=== PATIENT | male | born 1985 | race Caucasian/White ===

== ENCOUNTER → 2018-12-05 10:21 | Outpatient (CLI) | payer MEDICARE, MEDICAID, SELFPAY ==
[2018-11-26 09:51] VITALS: BMI 34.9
--- NOTE | 2018-12-05 10:24 | ECHOD_ITS ---
Reason For Study: HYPERTENSION Procedure This was a 2D Doppler, Color Flow transthoracic echocardiogram. Exam performed in department. Left Ventricle Normal LV size. Left ventricular systolic function is lower limits of normal. The estimated ejection fraction is 50 %. Stage 1 diastolic dysfunction. No regional wall motion abnormalities noted. Right Ventricle Normal RV size. Normal systolic function. Atria Normal left atrium. Normal right atrium. Mitral Valve Normal mitral valve. Tricuspid Valve Normal tricuspid valve. Unable to estimate RV systolic pressure due to inadequate jet, pulmonary artery pressure probably normal. Aortic Valve Normal aortic valve. Pulmonic Valve Normal pulmonic valve. Great Vessels Normal aortic root. The pulmonary artery is normal size. Normal inferior vena cava. Pericardium/Pleural No pericardial effusion. MMode/2D Measurements & Calculations LVIDd: 3.9 cm IVSd: 1.2 cm Ao root diam: 3.1 cm LVIDs: 2.7 cm LVPWd: 1.3 cm RVDd: 2.8 cm FS: 31.4 % LAV(MOD-bp): 33.5 ml LA A4 area: 13.2 cm2 LA dimension(2D): 3.4 cm LAV(MOD-bp) Indexed: 14.6 ml/m2 LAV(MOD-sp2): 35.7 ml LAV(MOD-sp4): 30.2 ml RA A4 area: 12.1 cm2 Time Measurements MV dec time: 0.20 sec Doppler Measurements & Calculations MV E max ok: 44.1 cm/sec Lat Peak E' Ok: 4.5 cm/sec Med Peak E' Ok: 7.1 cm/sec MV A max ok: 45.4 cm/sec E/E' lat: 9.9 E/E' med: 6.2 MV E/A: 0.97 Ao V2 max: 82.5 cm/sec LV V1 max: 74.3 cm/sec PA V2 max: 77.3 cm/sec Ao max P.7 mmHg LV V1 max P.2 mmHg Interpretation Summary Normal LV size. Left ventricular systolic function is lower limits of normal. The estimated ejection fraction is 50 %. Stage 1 diastolic dysfunction. Ordering Physician: Moises Alvarez Referring Physician: Davidson Proctor Performed By: Nancy Ulrich, ALEXX, RVT
== END ==
PROVIDERS: Family Provider Family Medicine; PCP Family Medicine; Referring Provider Internal Medicine Cardiovascular Disease; Visit Provider Internal Medicine Cardiovascular Disease
DX: R94.31 Abnormal electrocardiogram [ECG] [EKG] (principal)
CPT/HCPCS: 93306

== ENCOUNTER → 2019-05-14 10:18 | Outpatient (CLI) | payer MEDICARE, MEDICAID, SELFPAY ==
[2018-11-26 09:51] VITALS: BMI 34.9
[2019-05-14 10:51] LABS: Hematocrit 42.8 % (40-54); Hemoglobin 14.3 g/dL (13.0-16.5); Mean Corp Hgb Conc 33.4 g/dL (32-36); Mean Corpuscular Hgb 28.4 pg (27.0-32.0); Mean Corpuscular Volume 84.9 fL (80-94); Mean Platelet Vol. 9.6 fl (6.2-12.0); Platelet Count 339 K/mm3 (150-450); RBC Distribution Width CV 13.1 % (11.6-14.6); RBC Distribution Width SD 40.3 fl (35.1-43.9); Red Blood Count 5.04 M/mm3 (4.6-6.2); White Blood Count 5.9 K/mm3 (4.4-11.0)
[2019-05-14 11:26] LABS: Vitamin B12 845 pg/mL (211-911)
[2019-05-14 11:27] LABS: PTHIN 28.4 pg/mL (18.4-80.1)
[2019-05-14 11:35] LABS: AST(SGOT) 17 U/L (15-37); Alanine Aminotransfer ALT/SGPT 34 U/L (16-61); Albumin, Serum 3.5 g/dL (3.2-5.0); Alkaline Phosphatase 107 U/L (45-117); Anion Gap 5 (5-15); BUN 12 mg/dL (7-18); BUN/Creat Ratio 10.3 RATIO (10-20); Calcium,Total 9.2 mg/dL (8.5-10.1); Chloride 111 mmol/L (98-107); Cholesterol 177 mg/dL (200); Creatinine, Serum 1.17 mg/dL (0.70-1.30); EST Glomerular Filtration Rate 77 mL/min (>60); Est Glom Filt Rate - Afr Amer 93 mL/min (>60); Ferritin 163 ng/mL (26-388); Globulin 3.4 g/dL (2.2-4.2); Glucose 89 mg/dL (74-106); High Density Lipoprotein 44 mg/dL; Iron 105 ug/dL (65-175); Iron Binding Capacity,Total 306 ug/dL (250-450); Magnesium 2.1 mg/dL (1.6-2.6); PERCENT IRON SATURATION 34.3 % (15.0-55.0); Potassium 3.8 mmol/L (3.5-5.1); Protein, Total 6.9 g/dL (6.4-8.2); Sodium Level 142 mmol/L (136-145); Thyroid Stim Hormone (TSH) 2.07 uIU/mL (0.358-3.74); Triglycerides 121 mg/dL; Very Low Density Lipoprotein 24 mg/dL (5-40)
[2019-05-18 10:08] LABS: Vitamin B1, Thiamine 134.1 nmol/L (66.5-200.0); Zinc, Plasma or Serum 91 ug/dL (56-134)
[2019-05-18 15:07] LABS: Vitamin D 1,25-Dihydroxy 34.2 pg/mL (19.9-79.3)
== END ==
PROVIDERS: Family Provider Family Medicine
DX: I10 Essential (primary) hypertension (principal); K21.9 Gastro-esophageal reflux disease without esophagitis; G47.33 Obstructive sleep apnea (adult) (pediatric); Z90.3 Acquired absence of stomach [part of]; E61.1 Iron deficiency; E61.8 Deficiency of other specified nutrient elements
CPT/HCPCS: 36415; 80053; 80061; 82607; 82652; 82728; 82746; 83540; 83550; 83735; 83970; 84425; 84443; 84630; 85027

== ENCOUNTER 2022-02-18 23:10 | Emergency (ER) | payer MEDICARE, MEDICAID, SELFPAY ==
[2022-02-18 23:11] VITALS: BP 130/99; PULSE 133; RESP 16; TEMP 36.7; O2SAT 99; BMI 25.9
[2022-02-18 23:43] LABS: Absolute Neutrophil Count 5.7 X10^3/uL (2.0-7.7); Basophil# 0.07 X10^3/uL; Basophil% 0.8 % (0-1); Eosinophil# 0.08 X10^3/uL; Eosinophils% 0.9 % (0-5); Hematocrit 46.3 % (40-54); Lymphocyte % 21.1 % (19-41); Mean Corp Hgb Conc 34.6 g/dL (32-36); Mean Corpuscular Hgb 28.9 pg (27.0-32.0); Mean Corpuscular Volume 83.7 fL (80-94); Mean Platelet Vol. 8.9 fl (6.2-12.0); Monocyte# 0.87 X10^3/uL; Monocyte% 10.2 % (0-10); NRBC Flagged by Analyzer 0 % (0-5); Neutrophil # 5.69 X10^3/uL (2.7-7.7); Neutrophil % 66.6 % (47-70); Platelet Count 444 K/mm3 (150-450); RBC Distribution Width CV 12.1 % (11.6-14.6); RBC Distribution Width SD 36.5 fl (35.1-43.9); Red Blood Count 5.53 M/mm3 (4.6-6.2); White Blood Count 8.5 K/mm3 (4.4-11.0)
[2022-02-18 23:47] VITALS: BP 155/131; PULSE 124; RESP 22; O2SAT 100
[2022-02-19] VITALS (11 sets, daily range): BP systolic 132–150; BP diastolic 89–112; PULSE 85–110; RESP 16–24; TEMP 36.7; O2SAT 99–100
[2022-02-19 00:02] LABS: Alcohol, Blood (Medical)-Serum < 3.0 mg/dL
[2022-02-19 00:03] LABS: Anion Gap 8 (5-15); BUN 13 mg/dL (7-18); BUN/Creat Ratio 9.6 RATIO (10-20); Calcium,Total 9.2 mg/dL (8.5-10.1); Chloride 107 mmol/L (98-107); Creatinine, Serum 1.36 mg/dL (0.70-1.30); EST Glomerular Filtration Rate 63 mL/min (>60); Est Glom Filt Rate - Afr Amer 77 mL/min (>60); Estimated Creatinine Clearance 80.74 ml/min; Glucose 116 mg/dL (74-106); Sodium Level 141 mmol/L (136-145)
[2022-02-19 00:05] LABS: Amphetamine Urine VISTA NEGATIVE (<1000 ng/mL); Barbiturate Urine VISTA NEGATIVE (< 200 ng/mL); Benzodiazepine Urine VISTA NEGATIVE (< 200 ng/mL); Cocaine Urine VISTA NEGATIVE (< 300 ng/mL); Ecstacy Urine VISTA NEGATIVE (< 500 ng/mL); Methadone Urine VISTA NEGATIVE (< 300 ng/mL); PCP Urine VISTA NEGATIVE (< 25 ng/mL); THC Urine VISTA NEGATIVE (< 50 ng/mL); Vista UDS pH Range 6
--- NOTE | 2022-02-19 00:10 | ED.RN ---
[facility] PAGED TO SPEAK WITH PATIENT
--- NOTE | 2022-02-19 00:16 | NURSING ---
FAXED ECHART TO [facility] AT [id number].
--- NOTE | 2022-02-19 00:17 | ED.RN ---
[facility] CALLED BACK JEANIE IS ON. CHART FAXED TO [facility] AT THIS TIME
--- NOTE | 2022-02-19 00:18 | EDS_ITS ---
HPI History of Present Illness Chief Complaint: Suicidal Informant: patient Narrative Narrative: Patient had suicide thoughts and attempt this evening. It is unclear exactly what got him to this point. It sounds like there was some upset between him and his mother. He took about 16 [id number] 25 mg of Benadryl. He did this about 2-1/2 hours ago. No Tylenol or other meds. He states he feels a little shaky and has a dry mouth. He is not nauseated. He did try overdose back in 2013. He states he had vomited that. He is not on any meds at this time. He he is seeing a counselor but has not seen them in over 2 months. [facility] Medical History Agoraphobia Depression Fibromyalgia GERD (gastroesophageal reflux disease) Obesity due to excess calories Obstructive sleep apnea Vitamin D deficiency Home Medications NK 02/18/22 [History Last Taken Unknown] Allergy/AdvReac Type Severity Reaction Status Date / Time Penicillins Allergy Other Verified 02/18/22 23:11 Family History Father Myocardial infarction early 50's CAD (coronary artery disease) CABG Heart disease Mother Heart disease Surgical History H/O tooth extraction Social History Smoking Status: Never smoker ROS ROS ED Constitutional Constitutional ED: Denies fever(s) or sweats Eyes Eyes: Denies blurry vision, change in vision or diplopia ENT ENT ED: Denies rhinorrhea Cardiovascular Cardiovascular: Reports other Details: Heart rate is increased but he does not feel this. ; Denies chest pain, palpitations or racing heartbeat Respiratory/Chest Respiratory/Chest: Denies cough or dyspnea Gastrointestinal Gastrointestinal: Denies nausea or vomiting Genitourinary Genitourinary ED: Denies dysuria Musculoskeletal Musculoskeletal: Denies myalgias Integumentary Denies rash Neurologic Neurologic: Denies headache(s) Psychiatric Psychiatric: Reports anxiety, depression and suicidal thoughts Endocrine Endocrinology: Denies polydipsia or polyuria Allergic/Immunologic Allergic/Immunologic ED: Denies urticaria EXAM Physical Exam Const Vital Signs: 02/18/22 23:11 02/18/22 23:47 02/19/22 00:11 Temperature 98.1 F Temperature Source Temporal Pulse Rate 133 H 124 H 110 H Respiratory Rate 16 22 H 24 H Blood Pressure 130/99 H 155/131 H 146/102 H Blood Pressure Mean 109 139 116 Pulse Ox 99 100 100 Oxygen Delivery Method Room Air Room Air Room Air Positive well nourished and well developed General Appearance ED: well developed and NAD; Negative for cyanotic or diaphoretic Eyes General Eye ED: Negative for pale conjunctiva or scleral icterus Neck no JVD Chest Wall inspection of chest normal Resp normal respiratory effort and clear to auscultation bilaterally Cardio regular rhythm Rate: tachycardic GI normal to inspection, nondistended, normoactive bowel sounds and non-tender Auscultation: normoactive bowel sounds; Negative for hyperactive bowel sounds or hypoactive bowel sounds Palpation: soft Back/Spine no CVA tenderness Extremity normal to inspection General Extremety ED: Negative for edema or tenderness General Extremity: Negative for edema Neuro oriented x3 Sensorium / Orientation: alert Psych Psych Narrative: Patient does have a flat affect. He makes poor eye contact. He is cooperative though. Skin no rashes or lesions noted MDM MDM MDM Narrative Medical decision making narrative: Blood work shows normal CBC including white count hemoglobin and platelets. Electrolytes show minimally low potassium. We will replace this orally. Creatinine is minimally elevated but this can be treated with oral fluids as he is not having nausea or vomiting. Glucose is minimally up at 116. Alcohol level was negative. Tox was negative. Patient is having some mild tachycardia and dry mouth related to the Benadryl overdose. I think this can be treated symptomatically and should resolve. He is not showing signs of confusion or abnormal behavior. I think he needs to be watched longer medically but at this point he is certainly clear for psychiatric evaluation. Before placement he will be rechecked medically to make sure he is clear for placement and transfer from the facility. Lab Data Attestation: I reviewed the patient's lab results. Labs: Laboratory Results - last 24 hr 02/18/22 02/18/22 02/18/22 23:28 23:28 23:28 WBC 8.5 RBC 5.53 Hgb 16.0 Hct 46.3 MCV 83.7 MCH 28.9 MCHC 34.6 RDW Std Deviation 36.5 RDW Coeff of Kaelyn 12.1 Plt Count 444 MPV 8.9 Immature Gran % (Auto) 0.400 Neut % (Auto) 66.6 Lymph % (Auto) 21.1 Florence % (Auto) 10.2 H Eos % (Auto) 0.9 Baso % (Auto) 0.8 Absolute Neuts (auto) 5.7 Absolute Lymphs (auto) 1.80 Nucleated RBC % 0 Sodium 141 Potassium 3.0 L Chloride 107 Carbon Dioxide 26.0 Anion Gap 8 BUN 13 Creatinine 1.36 H Estim Creat Clear Calc 80.74 Est GFR (MDRD) Af Amer 77 Est GFR (MDRD) Non-Af 63 BUN/Creatinine Ratio 9.6 L Glucose 116 H Calcium 9.2 Urine Opiates Screen Urine Methadone Screen Ur Barbiturates Screen Ur Phencyclidine Scrn Ur Amphetamines Screen MDMA (Ecstasy) Screen U Benzodiazepines Scrn Urine Cocaine Screen U Cannabinoids Screen Ur Drug Screen Comment Ethyl Alcohol < 3.0 02/18/22 23:28 WBC RBC Hgb Hct MCV MCH MCHC RDW Std Deviation RDW Coeff of Kaelyn Plt Count MPV Immature Gran % (Auto) Neut % (Auto) Lymph % (Auto) Florence % (Auto) Eos % (Auto) Baso % (Auto) Absolute Neuts (auto) Absolute Lymphs (auto) Nucleated RBC % Sodium Potassium Chloride Carbon Dioxide Anion Gap BUN Creatinine Estim Creat Clear Calc Est GFR (MDRD) Af Amer Est GFR (MDRD) Non-Af BUN/Creatinine Ratio Glucose Calcium Urine Opiates Screen NEGATIVE Urine Methadone Screen NEGATIVE Ur Barbiturates Screen NEGATIVE Ur Phencyclidine Scrn NEGATIVE Ur Amphetamines Screen NEGATIVE MDMA (Ecstasy) Screen NEGATIVE U Benzodiazepines Scrn NEGATIVE Urine Cocaine Screen NEGATIVE U Cannabinoids Screen NEGATIVE Ur Drug Screen Comment Ethyl Alcohol Discharge Plan Triage Chief Complaint: Suicidal ED Provider: Silvestre Ayala Dx/Rx/DC Orders Prescriptions: No Action NK RF: 0 Primary Care Provider: Care Physician,No Primary Referrals: Care Physician,No Primary [Primary Care Provider] -
--- NOTE | 2022-02-19 00:47 | ED.RN ---
crisis speaking with patient at this time
[2022-02-19] MEDS: Potassium Chloride Oral Tablet 20 MEQ 40 MEQ PO (02:16)
--- NOTE | 2022-02-19 02:57 | ED.RN ---
poison control contacted per [facility] request. poison control recommendations for patient to be medical eval for 6 hours and to check Tylenol level on patient. Crisis to be made aware of these recommendations
--- NOTE | 2022-02-19 03:03 | ED.RN ---
patient has been referred to [facility] and [facility]
[2022-02-19] MEDS: LORazepam 1 MG Tablet PO (03:11)
[2022-02-19 03:54] LABS: Acetaminophen (Tylenol) Level < 2.0 ug/mL (10.0-30.0); Salicylate < 1.7 mg/dL (2.8-20.0)
--- NOTE | 2022-02-19 08:45 | ED.RN ---
PER JEANIE WITH CRISIS REQUEST THIS [employer]BOL [employer] FAXED NEGATIVE COVID TEST TO HER.
--- NOTE | 2022-02-19 11:03 | ED.RN ---
Patient denied need for food, emotional at time and crying but is cooperative. Family and sitter at bedside.
[2022-02-19 11:04] LABS: Acetaminophen (Tylenol) Level < 2.0 ug/mL (10.0-30.0)
--- NOTE | 2022-02-19 12:31 | ED.RN ---
Jenny, from counseling center, called and stated [facility] was willing to accept patient as long as patient is medically cleared with his blood pressure. [facility] was concerned for the elevated pressure readings. I spoke with Dr. Puente and he stated patient was medically cleared and was given the blood pressure reading. Jenny was notified of this.
--- NOTE | 2022-02-19 13:25 | ED.RN ---
Patient states I need a catheter because I can't pee with all these people, educated on necessity vs risks of catheter placement. Denies any urinary symptoms. Also while talking with this patient he states he no longer has SI and wants to go home, seems agitated at time.
[2022-02-19] MEDS: amLODIPine 10 MG Tablet PO (14:16)
--- NOTE | 2022-02-19 16:56 | ED.RN ---
Addendum entered by Jessica Sawyer 02/19/22 16:59: MARIELY PHONE NUMBER [phone] Original Note: UPDATED MARIELY, CHARGE AT [facility], ON PATIENT BLOOD PRESSURE READINGS. SHE WILL CONTACT [facility] FOR BED ASSIGNMENT.
--- NOTE | 2022-02-19 17:05 | ED.RN ---
SPOKE WITH ELENA AT [facility]; [facility] REQUESTING EKG, PINK SLIP AND COMPLETE UA FAXED TO THEM. REPORTED TO HALLEY ECKERT THAT COMPLETE UA NEEDS DONE.
--- NOTE | 2022-02-19 18:18 | ED.RN ---
REPORT CALLED TO [facility] [id number], SPOKE WITH YE.
== END 2022-02-19 18:42 ==
LOC: ED 02-19 00:02
PROVIDERS: Emergency Medicine; Emergency Provider Emergency Medicine; Visit Provider Emergency Medicine
DX: T45.0X2A Poisoning by antiallergic and antiemetic drugs, intentional self-harm, initial encounter (principal); G25.1 Drug-induced tremor; R68.2 Dry mouth, unspecified; E87.6 Hypokalemia; E66.09 Other obesity due to excess calories; M79.7 Fibromyalgia
CPT/HCPCS: 80048; 80307; 80329; 82077; 85025; 87811; 99281; 99285; G0480